=== PATIENT | male | born 1975 | race Caucasian/White ===

== ENCOUNTER 2019-07-08 17:34 | Emergency (ER) | payer MEDICAID ==
[~2019-07-08] VITALS: Ht 175.3 cm; Wt 88.6 kg
[2019-07-08 17:37] VITALS: Ht 175.3 cm; Wt 88.6 kg
[2019-07-08 18:21] LABS: APPEARANCE CLEAR (CLEAR); BILIRUBIN NEGATIVE (NEGATIVE); COLOR YELLOW (YELLOW); GLUCOSE NEGATIVE (NEGATIVE); KETONE NEGATIVE (NEGATIVE); NITRITE NEGATIVE (NEGATIVE); PROTEIN NEGATIVE (NEGATIVE); UROBILINOGEN NORMAL (NORMAL)
[2019-07-08 19:09] LABS: BASOPHILS 0.4 % (0-2); EOSINOPHILS 5.4 % (0-7); HEMATOCRIT 38.7 % (42.0-54.0); HEMOGLOBIN 12.5 g/dL (13.5-17.5); IMMATURE GRANULOCYTES 1.2 % (0-5); LYMPHOCYTES 23.2 % (15-50); MCH 24.4 pg (26.0-34.0); MCHC 32.3 g/dL (31.0-37.0); MCV 75.4 fL (80.0-100.0); MEAN PLATELET VOLUME 9.1 fL (7.4-10.4); MONOCYTES 9.7 % (2-11); NEUTROPHILS 60.1 % (40-80); PLATELET COUNT 249 10x3/uL (130-400); RBC 5.13 10x6/uL (4.20-6.10); RDW 16.8 % (11.5-14.5); WBC 7.7 10x3/uL (4.8-10.8)
[2019-07-08 19:24] LABS: ALBUMIN 2.8 g/dL (3.4-5.0); ALKALINE PHOSPHATASE 70 U/L (46-116); ALT (SGPT) 14 U/L (10-68); BILIRUBIN - TOTAL 0.13 mg/dL (0.2-1.3); CALC OSMOLALITY 280 mosm/kg (275-300); CALCIUM 8.6 mg/dL (8.5-10.1); CARBON DIOXIDE 25.1 mmol/L (21.0-32.0); CHLORIDE - SERUM 107 mmol/L (98-107); CREATININE - SERUM 0.8 mg/dL (0.6-1.3); GLUCOSE 90 mg/dL (74-106); POTASSIUM - SERUM 4.4 mmol/L (3.5-5.1); PROTEIN - SERUM 6.8 g/dL (6.4-8.2); SODIUM 142 mmol/L (136-145); UREA NITROGEN 8 mg/dL (7-18); eGFR NON AFRICAN AMERICAN > 90 mL/min (90-120)
[2019-07-08] MEDS ORDERED: DOXYCYCLINE HY100 M2 PO (20:12)
[2019-07-08] MEDS ORDERED: TORADOL10 MG PO (20:12)
[2019-07-08 21:46] VITALS: BP 145/86
== END 2019-07-08 21:34 | disposition home or self-care (01) ==
LOC: EDBD 17:34 → D.ER 17:34
PROVIDERS: Emergency Medicine
DX: N45.1 Epididymitis (principal); R21 Rash and other nonspecific skin eruption

== ENCOUNTER 2021-04-05 09:18 | Inpatient (IN) | payer MEDICAID ==
[2021-04-05] VITALS (7 sets, daily range): BP systolic 150–180; BP diastolic 99–124
[~2021-04-05] VITALS: Ht 175.3 cm; Wt 90.9 kg
[~2021-04-05 09:18] MED LIST: DOXYCYCLINE HY100 M2 PO; TORADOL10 MG PO
[2021-04-05 09:39] LABS: BASOPHILS 0.6 % (0-2); EOSINOPHILS 1.8 % (0-7); HEMATOCRIT 47.6 % (42.0-54.0); HEMOGLOBIN 14.8 g/dL (13.5-17.5); IMMATURE GRANULOCYTES 0.5 % (0-5); LYMPHOCYTE ABS# 2.44 10x3/uL (1.32-3.57); LYMPHOCYTES 31.1 % (15-50); MCH 24.5 pg (26.0-34.0); MCHC 31.1 g/dL (31.0-37.0); MCV 78.7 fL (80.0-100.0); MEAN PLATELET VOLUME 9.4 fL (7.4-10.4); MONOCYTES 8.4 % (2-11); NEUTROPHIL ABS# 4.52 10x3/uL (1.78-5.38); NEUTROPHILS 57.6 % (40-80); PLATELET COUNT 235 10x3/uL (130-400); RBC 6.05 10x6/uL (4.20-6.10); RDW 16.6 % (11.5-14.5); WBC 7.9 10x3/uL (4.8-10.8)
[2021-04-05 09:48] LABS: CALC OSMOLALITY 270 mosm/kg (275-300); CALCIUM 8.9 mg/dL (8.5-10.1); CARBON DIOXIDE 24.9 mmol/L (21.0-32.0); CHLORIDE - SERUM 100 mmol/L (98-107); CREATININE - SERUM 1.3 mg/dL (0.6-1.3); GLUCOSE 134 mg/dL (74-106); POTASSIUM - SERUM 3.7 mmol/L (3.5-5.1); SODIUM 135 mmol/L (136-145); UREA NITROGEN 9 mg/dL (7-18); eGFR NON AFRICAN AMERICAN 63 mL/min (90-120)
[2021-04-05 09:56] LABS: APTT 31.8 SECONDS (22.8-39.4); INR 1.27 (0.85-1.17); PROTIME 14.7 SECONDS (11.6-15.0)
[2021-04-05 10:05] LABS: ALBUMIN 3.5 g/dL (3.4-5.0); ALKALINE PHOSPHATASE 93 U/L (30-120); ALT (SGPT) 45 U/L (10-68); BILIRUBIN - TOTAL 0.47 mg/dL (0.2-1.3); CKMB 3.9 U/L (0.0-3.6); CREATINE KINASE 117 UL (21-232); PRO BNP 1507 pg/mL (0-125); TROPONIN-I 0.021 ng/mL (0.000-0.060)
--- NOTE | 2021-04-05 10:34 | NUR ---
pt came in ambulatory c/o SOB and chest pressure that has been going on for a month but worsening symptoms today. Denied recreational drug use on arrival. attempted PIV 6x by ER staff, no success. Dr. Alvarez notified. Pt later reports hx of IV drug use. States that he "ingested meth 3 days ago" and smoked weed last night.
[2021-04-05 11:30] LABS: UDS - AMPHET POSITIVE QUAL (NEGATIVE); UDS - BARB NEGATIVE QUAL (NEGATIVE); UDS - BENZO NEGATIVE QUAL (NEGATIVE); UDS - COCAINE NEGATIVE QUAL (NEGATIVE); UDS - OPIATE NEGATIVE QUAL (NEGATIVE); UDS - PCP NEGATIVE QUAL (NEGATIVE); UDS - THC NEGATIVE QUAL (NEGATIVE)
[2021-04-05] MEDS ORDERED: XARELTO10 MG PO (15:04)
--- NOTE | 2021-04-05 17:40 | NUR ---
report given to Soni. pt to be admitted to room 2980
--- NOTE | 2021-04-05 18:40 | NUR ---
RECEIVED PATIENT TO FLOOR VIA WC. PATIENT WANTED TRAY STATED " I HAVE NOT EATEN IN DAYS" EXPLAINED THAT PER ORDERS HE IS NPO FOR THE MOMENT AND I AM AWAITING CALL BACK FROM [facility]. PAGED [facility] TWICE AWAITING CALL. NO OTHER NNEEDS AT THIS TIME. CONTINUE WITH PLAN OF CARE
[2021-04-06] VITALS (7 sets, daily range): BP systolic 140–165; BP diastolic 66–115; Ht 175.3 cm; Wt 90.9 kg
--- NOTE | 2021-04-06 00:23 | NUR ---
PT RESTING IN BED WITH EYES OPEN WATCHING TV. NICOTINE PATCH PLACE IN HIS RIGHT UPPER SHOULDER. PT REQUESTED FOOD AND A DRINK TALKED TO KELLY AND PT IS ON A REGULAR DIET OK TO EAT. PT WILL CONT WITH PLAN OF CARE.
[2021-04-06 01:29] LABS: CKMB 3.1 U/L (0.0-3.6); CREATINE KINASE 82 UL (21-232); TROPONIN-I 0.028 ng/mL (0.000-0.060)
[2021-04-06 05:16] LABS: BASOPHILS 0.6 % (0-2); HEMATOCRIT 43.4 % (42.0-54.0); HEMOGLOBIN 13.5 g/dL (13.5-17.5); IMMATURE GRANULOCYTES 0.3 % (0-5); LYMPHOCYTE ABS# 1.45 10x3/uL (1.32-3.57); MCH 24.2 pg (26.0-34.0); MCHC 31.1 g/dL (31.0-37.0); MCV 77.6 fL (80.0-100.0); MEAN PLATELET VOLUME 9.5 fL (7.4-10.4); MONOCYTES 9.7 % (2-11); NEUTROPHILS 66.4 % (40-80); PLATELET COUNT 237 10x3/uL (130-400); RBC 5.59 10x6/uL (4.20-6.10); RDW 16.7 % (11.5-14.5); WBC 6.9 10x3/uL (4.8-10.8)
[2021-04-06 05:46] LABS: ALKALINE PHOSPHATASE 84 U/L (30-120); ALT (SGPT) 41 U/L (10-68); BILIRUBIN - TOTAL 0.54 mg/dL (0.2-1.3); CALC OSMOLALITY 279 mosm/kg (275-300); CALCIUM 8.9 mg/dL (8.5-10.1); CARBON DIOXIDE 25.4 mmol/L (21.0-32.0); CHLORIDE - SERUM 107 mmol/L (98-107); CHOL - HDL RATIO 2.4 ratio (2.3-4.9); CHOLESTEROL, TOTAL 112 mg/dL (0-200); CKMB 2.7 U/L (0.0-3.6); CREATINE KINASE 79 UL (21-232); CREATININE - SERUM 1.2 mg/dL (0.6-1.3); GLUCOSE 106 mg/dL (74-106); HDL CHOLESTEROL 47 mg/dL (32-96); LDL CHOLESTEROL 53 mg/dL (0-100); LDL-HDL RATIO 1.1 ratio (1.5-3.5); MAGNESIUM - SERUM 2.4 mg/dL (1.8-2.4); PHOSPHOROUS 3.9 mg/dL (2.5-4.9); POTASSIUM - SERUM 3.7 mmol/L (3.5-5.1); PROTEIN - SERUM 6.7 g/dL (6.4-8.2); SODIUM 141 mmol/L (136-145); TRIGLYCERIDE 60 mg/dL (30-200); TROPONIN-I 0.018 ng/mL (0.000-0.060); UREA NITROGEN 10 mg/dL (7-18); eGFR NON AFRICAN AMERICAN 69 mL/min (90-120)
--- NOTE | 2021-04-06 08:05 | NUR ---
PATIENT ASLEEP ON RT SIDE, IV ALARMING OCCULDED, PATIENT BP ELEVATED, SL PATIENT AT THIS TIME. NO NEEDS VOICED CONTINUE WITH PLAN OF CARE
--- NOTE | 2021-04-06 10:59 | NUR ---
I have reviewed this patient and I concur with the Shift Assessment completed by the Licensed Practical Nurse today this shift.
[2021-04-06 12:27] LABS: CKMB 2.7 U/L (0.0-3.6); CREATINE KINASE 74 UL (21-232); TROPONIN-I 0.022 ng/mL (0.000-0.060)
--- NOTE | 2021-04-07 03:34 | NUR ---
PT IS RESTING IN BED WITH EYES CLOSED NO NEEDS AT THE MOMENT, WILL CONT WITH PLAN OF CARE.
[2021-04-07 04:00] VITALS: BP 161/110
--- NOTE | 2021-04-07 04:00 | NUR ---
I have reviewed this patient and I concur with the Shift Assessment completed by the Licensed Practical Nurse today this shift.
[2021-04-07 08:52] VITALS: BP 143/96
--- NOTE | 2021-04-07 09:52 | NUR ---
ALERT AND ORIENTED. ASSESSMENT COMPLETE. DENIES NEEDS. BED LOW. CALL MENARD AND PERSONAL ITEMS IN REACH. WILL CONTINUE TO MONITOR.
[2021-04-07 10:12] LABS: HEPATITIS C ANTIBODY >11.0 S/CO RAT (0.0-0.9)
[2021-04-07] MEDS ORDERED: CATAPRES PO (11:14)
[2021-04-07] MEDS ORDERED: LISINOPRIL10 MG PO (11:14)
[2021-04-07] MEDS ORDERED: NICODERM CQ1 EAC3 TRANSDERM (11:14)
--- NOTE | 2021-04-07 12:27 | MORECARE ---
CASE MANAGEMENT DISCHARGE SUMMARY PATIENT: TIMOTEO WOOD UNIT: [id number] ADM DATE: 04/05/21 AGE: 45 : 73 SEX: M ROOM/BED: D.2216 AUTHOR: KALDOC PHYSICIAN: REFERRING PHYSICIAN: JEANNETTE FISHER MD DATE OF SERVICE: 04/07/21 Case Management Discharge Planning Summary DCP REVIEW SUMMARY ANTICIPATED D/C DATE: EXPECTED LOS : CASE STATUS: DCP Initiated INITIAL REVIEW: 04/05/2021 INITIAL REVIEWER: Christina Wilhelm FINAL DISCHARGE DISPOSITION: 01 : Home or Self Care (Routine Discharge) FINAL REVIEWER: FINAL REVIEW DATE: DCP Focus Questions & Answers QUESTION: ANSWER : PATIENT: TIMOTEO WOOD ENCOUNTER: [id number] MEDICAL RECORD#: [id number] ADMISSION DATE: 04/05/2021 DISCHARGE DATE: ATTENDING MD: JEANNETTE JENSEN : AGE: 45 MARITAL STATUS: S DC PLAN ID: [id number] FACILITY: [facility] PRINTED ON: 04/07/21 12:27 CT All edits/amendments must be made on the electronic document DICTATION DATE: 04/07/21 122 TAPE EDITOR: ANN MARIE 04/07/21 1227 RPT#: [id number] DC DATE: STATUS: ADM IN [facility] [address] [place] [address] END OF REPORT
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
--- NOTE | 2021-04-07 13:25 | NUR ---
DC EDUCATION PROVIDED BOTH WRITTEN AND VERBAL. VERBALIZED UNDERSTANDING. DENIES FURTHER QUESTIONS. IV REMOVED FROM RIGHT AC WITH TIP INTACT. REFUSES WHEELCHAIR. WANTS TO WALK OUT. PATIENT DC HOME WITH ALL BELONGINGS.
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
== END 2021-04-07 13:50 | disposition home or self-care (01) | DRG 445 ==
LOC: D.ER 09:18 → D.MS 17:00
PROVIDERS: Family Medicine; ADMIT Emergency Medicine; ATTEND Emergency Medicine
DX: K81.0 Acute cholecystitis (principal); F15.20 Other stimulant dependence, uncomplicated; I82.413 Acute embolism and thrombosis of femoral vein, bilateral; I27.20 Pulmonary hypertension, unspecified; F17.200 Nicotine dependence, unspecified, uncomplicated; Z91.19 Patient's noncompliance with other medical treatment and regimen; E04.2 Nontoxic multinodular goiter